=== PATIENT | female | born 1945 | race Caucasian/White ===

== ENCOUNTER 2018-09-10 18:45 | Inpatient (IN) | payer MEDICARE ==
[~2018-09-10] VITALS: Ht 170.2 cm; Wt 71.2 kg
--- NOTE | ~2018-09-10 | EKG ---
[place], [place] ELECTROCARDIOGRAM REPORT NAME: LASHONDA CHAMPION UNIT #: [id number] ROOM: 310 DOCTOR: NEREYDA DRAFT REPORT BIRTHDATE: [birth year] [facility] Test Date: 2018-09-11 Test Time: 17:53:45 Pat Name: LASHONDA CHAMPION Department: Room: 310 1 Gender: F Medical Record Specialist: : [id number] Requested By: LYLE PRADO Order Number: [id number] Reading MD: Mariela Andrade MD Measurements Intervals [place] Rate: 123 P: -40 HI: 132 QRS: -30 QRSD: 87 T: 68 QT: 325 QTc: 465 Interpretive Statements Sinus tachycardia Left axis deviation Anterior infarct, old No previous ECG available for comparison Electronically Signed On 09-18-2018 10:42:26 PST by Mariela Andrade MD CM:EKGRPT:ELECTROCARDIOGRAM REPORT [id number] LYLE ROBLES DRAFT REPORT LYLE PRADO DO
--- NOTE | ~2018-09-10 | PR ---
[place], [place] PROGRESS NOTE NAME: LASHONDA CHAMPION UNIT #: [id number] ROOM: 310 DOCTOR: CANELO MEDEIROS CNP BIRTHDATE: [birth year] DOS: 09/15/2018 CHIEF COMPLAINT: "This thing is bothering my waist." SUMMARY OF THE VISIT: The patient was interviewed in the dining area. The patient reports that she continues to feel anxious. She reports that she wants to get out of the chair and she promises that she will not try to leave. Staff was getting ready to transport the patient to her room to be showered at this time. MENTAL STATUS EXAMINATION: She is alert and oriented with some memory gaps. Her mood continues to be somewhat anxious and depressed, but appears to be improving. There is no hypomania or ana noted. No delusions or paranoia noted. No auditory or visual hallucinations noted. No lethargy or somnolence noted. PLAN: We will increase Namenda to 5 mg in the morning and 10 mg at bedtime. Continue all other medications as ordered at this time. The patient does appear to be tolerating medications without side effects. We will continue to engage the patient in individual and easley milieu activity. Continue with fall and safety precautions. Plan to return the patient to the least restrictive environment when she is psychiatrically stable. Canelo Medeiros CNP CM:PNTRANS [id number] CANELO MEDEIROS CNP 09/15/18 1044 interface
--- NOTE | ~2018-09-10 | DS ---
[place], [place] DISCHARGE SUMMARY [id number] UNIT #: [id number] ROOM: 310 DOCTOR: CANELO COLIN CNP BIRTHDATE: [birth year] DOS: 09/17/2018 CHIEF COMPLAINT: "I slept okay." HISTORY OF PRESENT ILLNESS: This is a 72-year-old white female who resides at the [facility]. She was admitted to the Behavioral Health Unit here at [facility] on 09/11/2018 due to the fact that she was appearing catatonic and she was having delayed responses and delayed ability to understand. She had not slept in 3 days. She had been admitted to the correction at [facility] 2 weeks prior and the staff reports that she has had a decline in her ADLs since that time. Due to the decompensation, it was felt that inpatient stabilization was warranted and she was admitted to the [facility] Behavioral Health Unit. SUMMARY OF THE HOSPITAL COURSE: The patient was admitted to the unit where her risperidone, Cymbalta and BuSpar were discontinued. She was started on Remeron 15 mg at bedtime and she was also started on Latuda 40 mg, which was increased to 60 mg at bedtime. Her Namenda was also started and it was increased from 5 mg once a day to now 10 mg twice a day, she was tapered over the course of her stay. Ativan 0.5 mg 3 times a day was also initiated. The patient tolerated medication changes well and has been extremely well. There is no acting out, no yelling, no complaints of any types of delusions or hallucinations. She has improved sufficiently to return back to the [facility] on 09/17/2018. PSYCHIATRIC CONDITION AT DISCHARGE: The patient has dramatically improved since admission. MEDICAL CONDITION AT DISCHARGE: The patient is alert and oriented to person, place and time with some memory gaps. Her mood has been calm. Her affect has been appropriate. There are no symptoms suggestive of ana or hypomania. There are no auditory or visual hallucinations noted. No delusions or paranoia noted. Short, intermediate and long-term memories are intact. PHYSICAL CONDITION AT DISCHARGE: The patient had no acute physical issues to be addressed at the time of discharge. FUNCTIONAL AND EMOTIONAL CONDITION AT DISCHARGE: The patient is assisted by staff with her ADLs. She does require some prompting and cueing. She is able to interact with individuals without difficulty. MEDICATIONS AT DISCHARGE: Exelon 13.3 mg patch daily, Remeron 15 mg at bedtime, Latuda 60 mg at bedtime, Ativan 0.5 mg 3 times day and Namenda 10 mg twice a day. The patient is not on multiple antipsychotic medications. FOLLOWUP CARE: Activity per the primary care physician at [facility]. Nutrition and diet per the primary care physician at [facility]. PSYCHIATRIC CONTINUING CARE PLAN: Psychiatric services will be provided by Dr. Baca. [place], [place] DISCHARGE SUMMARY NAME: LASHONDA CHAMPION UNIT #: [id number] ROOM: [facility] DOCTOR: CANELO COLIN CNP BIRTHDATE: [birth year] PAIN ASSESSMENT: The patient denied any pain issues at this time. FINAL DIAGNOSES: Brief psychotic disorder, unspecified dementia, schizophrenia. DISPOSITION: The patient is to return to the [facility] today. Her medication reconciliation has been filled out and signed. Her prognosis is good. Canelo Colin CNP CM:DISCHARG [id number] CANELO COLIN CNP 09/17/18 1231 interface
--- NOTE | ~2018-09-10 | PR ---
[place], [place] PROGRESS NOTE NAME: LASHONDA CHAMPION UNIT #: [id number] ROOM: 310 DOCTOR: CANELO MEDEIROS CNP BIRTHDATE: [birth year] DOS: 09/14/2018 CHIEF COMPLAINT: "I have to go to the bathroom." SUMMARY OF THE VISIT: The patient was interviewed in the dining area. She was complaining that she needed to get to the bathroom. She reports that she feels as if she slept well last night and that her appetite is good. The nurses report that the patient is selective in her responses and that she is slow to respond at times. The patient appears to be somewhat anxious at this time. MENTAL STATUS EXAMINATION: She is alert and oriented with time gaps. Her mood does seem to be somewhat anxious and depressed this morning. There are no signs of ana or hypomania. There are no audio or visual hallucinations noted. No delusions or paranoia noted. PLAN: We will continue medications as prescribed, which is Namenda 5 mg twice a day, Latuda 60 mg at bedtime, Ativan 0.5 mg 3 times a day and the Exelon 13.3 mg daily. We will plan to increase Namenda to 5 mg in the morning and 10 mg at bedtime tomorrow as long as the patient continues to tolerate medications without side effects. We will continue to engage the individual and easley milieu activity with plans to return to the least restrictive environment when psychiatrically stable. We will also continue fall and safety precautions. Canelo Medeiros CNP CM:PNTRANS [phone] CANELO MEDEIROS CNP 09/14/18 1013 interface
--- NOTE | ~2018-09-10 | PR ---
[place], [place] PROGRESS NOTE NAME: LASHONDA CHAMPION UNIT #: [id number] ROOM: 310 DOCTOR: CANELO MEDEIROS CNP BIRTHDATE: [birth year] DOS: 09/16/2018 CHIEF COMPLAINT: "I am ready to go. SUMMARY OF THE VISIT: The patient was interviewed as she was sitting in the dining area. She did voice that she is feeling better and that her mood has improved; however, she still has some anxiety. The nurses report that the patient only slept about 3 hours last night and that her sleep was interrupted, however, she has slept this morning. No agitation or behaviors noted. MENTAL STATUS EXAMINATION: She is alert and oriented with time gaps. Her mood seems to be improving and less anxious and depressed. There is no hypomania or ana noted. No delusions or paranoia noted. No auditory or visual hallucinations noted. No aggression or agitation noted. PLAN: I will increase the Namenda to 10 mg in the morning and 10 mg in the evening. We will continue her Ativan 0.5 mg 3 times a day and the Latuda 60 mg a day along with Exelon 13.3 mg daily. We will continue to have the patient engage in individual and easley milieu activity. We will continue fall and safety precautions. Plan to return the patient to the least restrictive environment as soon as tomorrow. Canelo Medeiros CNP CM:PNTRANS [phone] CANELO MEDEIROS CNP 09/16/18 2330 interface
--- NOTE | ~2018-09-10 | PR ---
[place], [place] PROGRESS NOTE NAME: LASHONDA CHAMPION UNIT #: [id number] ROOM: 310 DOCTOR: ANDRAE MI MD BIRTHDATE: [birth year] DOS: 09/13/2018 CHIEF COMPLAINT: "It feels like it is moving back and forth." SUMMARY OF THE VISIT: The patient was interviewed in the dining area. She had just talked to the hospitalist. She was complaining of left-sided chest pain again and reports that it feels like things on the inside her moving back and forth, which sounds like palpitations and anxiety. She did voice that she does feel anxious. I will go ahead and try some Ativan straight to see if this stops this symptom complex. It may also help some of her catatonia, which seems to be selective and may be related to anxiety. MENTAL STATUS: She is alert and oriented with time gaps. Mood does seem to be somewhat anxious and depressed, but improving. There is no hypomania or ana, psychosis is in the form of her catatonia. Memory has gaps. PLAN: I will increase the Namenda from 5 mg a day to 5 mg twice a day, increase the Latuda from 40 mg at bedtime to 60 mg at bedtime and add Ativan 0.5 mg 3 times a day straight. We will engage in individual and easley milieu activity, returning to the least restrictive environment when psychiatrically stable. ANDRAE MI MD CM:PNTRANS 09 120 ANDRAE MI MD 09/13/18 1205 interface
--- NOTE | ~2018-09-10 | WRIGHTHP ---
[place], [place] PATIENT HISTORY AND PHYSICAL EXAM [id number] UN[facility] #: [id number] ROOM: 310 DOCTOR: ANDRAE MI MD BIRTHDATE: [birth year] DOS: 09/11/2018 CHIEF COMPLAINT: "I need to get my meds straightened out." HISTORY OF PRESENT ILLNESS: This is a 72-year-old white female who resides at the [facility]. The patient was noted to have a sudden and significant mental status change where she appeared nearly catatonic and had significant processing difficulty. The patient was sent to [facility] to be evaluated medically and once organic factors were ruled out it was felt that she required psychiatric intervention to break the near catatonic symptoms. The patient had been not attending to her ADLs. She has not been sleeping well, eating well and it had been acting very bizarrely. She is admitted now to rule out organic factors, to stabilize on medication, to engage in individual and aesley milieu activity, returning to the least restrictive environment when psychiatrically stable. PAST MEDICAL HISTORY: Remarkable for coronary artery disease, cerebrovascular disease, degenerative joint disease, major depression, recurrent, hypertension, dementia, and possible schizophrenia. SOCIAL HISTORY: The patient does not drink, smoke or use illicit drugs. ALLERGIES: She has no known allergies. STRENGTHS: Good verbal skills, ambulatory. WEAKNESSES: Poor coping skills, long-term psychiatric history. MENTAL STATUS: The patient is alert and oriented with significant time gaps. There is a significant amount of thought blocking noted and she processes information extremely slowly. There is a great delay in her responses. She does not seem to be actively psychotic, but is rather guarded in her presentation. Memory does have gaps. DIAGNOSIS: Schizoaffective disorder, rule out major depression, recurrent with psychotic features. PLAN: Routine screening examinations revealed her to have a low vitamin B12 level of 297. I will treat with vitamin B12 injection 1000 mcg monthly, vitamin D level was also low at 18.5. We will treat with vitamin D 5000 international units daily. I have discontinued her Risperdal and BuSpar in lieu of Latuda 40 mg at bedtime. I will now discontinue Cymbalta in lieu of Remeron 15 mg at bedtime. Continue to engage in individual and easley milieu activity, returning to the least restrictive environment when psychiatrically stable. [place], [place] PATIENT HISTORY AND PHYSICAL EXAM NAME: LASHONDA CHAMPION UNIT #: [id number] ROOM: 310 DOCTOR: ANDRAE MI MD BIRTHDATE: [birth year] ANDRAE MI MD CM:HISPHYS:PATIENT HISTORY AND PHYSICAL EXAMINATION [id number] ANDRAE MI MD 09/11/18 1103 interface
--- NOTE | ~2018-09-10 | PR ---
[place], [place] PROGRESS NOTE NAME: LASHONDA CHAMPION UNIT #: [id number] ROOM: 310 DOCTOR: ANDRAE MI MD BIRTHDATE: [birth year] DOS: 09/12/2018 CHIEF COMPLAINT: "I don't like this thing in front of me." SUMMARY OF THE VISIT: The patient was interviewed as she was resting quietly in a Zehra chair. Her responses tended to be short and simple, at times off basis from the questions being asked. She was pleasant, however, there was no agitation or aggression. There is still a great deal of sparsity of thought and a great delay in her response time. Outwardly, she does seem to be tolerating the medicines well. MENTAL STATUS: She is alert and oriented to person, place, not time. Mood does seem to be fairly euthymic. No ana or hypomania or psychosis is noted. PLAN: I will increase her Exelon patch from 9.5-13.3 mg daily, trying to maximize potential benefits. I will augment now with Namenda 5 mg a day, engage in individual and easley milieu activities, returning to the least restrictive environment when psychiatrically stable. ANDRAE MI MD CM:PNTRANS 9 7 ANDRAE MI MD 09/12/18906 interface
[2018-09-10] MEDS ORDERED: CYMBALTA60 MG PO (22:34)
[2018-09-10] MEDS ORDERED: BUSPAR5 MG PO (22:34)
[2018-09-10] MEDS ORDERED: EXELON1 EAC1 T (22:35)
[2018-09-10] MEDS ORDERED: RISPERDAL2 M1 PO (22:36)
[2018-09-11] MEDS ORDERED: ASPIRIN ADULT L81 M1 PO (00:49)
[2018-09-11] MEDS ORDERED: LIPITOR40 MG PO (00:50)
[2018-09-11] MEDS ORDERED: Lopressor25 MG PO (00:50)
[2018-09-11] MEDS ORDERED: PRILOSEC20 M1 PO (00:51)
[2018-09-11] MEDS ORDERED: MIRALAX17 GM PO (00:52)
[2018-09-11] MEDS ORDERED: SENNA8.6 MG PO (00:53)
[2018-09-11 01:10] VITALS: BP 121/73
--- NOTE | 2018-09-11 01:10 | NUR ---
A 72, admitted PINKSLIPPED to 3N, under the services of ANDRAE Palacios MD with a diagnosis of BRIEF PSYCHOTIC D/O. Chief complaint is EPS, CATATONIC, HASNT SLEPT IN 3 DAYS. Patient arrived via stretcher from [facility] Initial assessment completed. Vital signs taken and recorded. ANDRAE PALACIOS MD notified of admission to the unit. Orders received. See assessment for past medical history, medications and allergies. Patient oriented to unit. [facility] visitation policy reviewed. Clothing/patient valuable form completed. JAMES VIERA
--- NOTE | 2018-09-11 01:35 | NUR ---
CUSTOMER CARE CONSULTANT CARLOS LI UPDATED ON PT ARRIVAL
--- NOTE | 2018-09-11 01:39 | NUR ---
CALLED HOSPITALIST CELL #[address] BUTLER. UPDATED ON NEW PT. NEW ORDER TO PLACE CONSULT UNDER DR DALE.
--- NOTE | 2018-09-11 02:00 | NUR ---
DR BUTLER ON UNIT TO ASSESS PT
[2018-09-11 02:29] VITALS: BP 121/73
--- NOTE | 2018-09-11 02:37 | NUR ---
PT SEDATED UPON ARRIVAL TO UNIT. PT PLACED IN BED. PT SAT ON EDGE OF BED. PT THEN PLACED IN ASHLEY CHAIR IN VIEW OF NURSES STATION. PT HAS EYES CLOSED AND REPEATEDLY SAYING "NURSE". WHEN STAFF ENTERED ROOM PT STATED HER LEFT BREAST WAS HURTING. NO AREAS OF CONCERN NOTED TO AREA. NO C/O CHEST PAIN. DENIES DIZZINESS, HEADACHE, N/V. PT REFUSED TO COMPLETE SKIN ASSESSMENT. REFSUED FLU AND PNEUMONIA VACCINES. UNABLE TO COMLETE ADMISSION ASSESSMENT DUE TO PREVIOUS SEDATION. UNABLE TO COMPLETE SUICIDE RISK ASSESSMENT AT THIS TIME.
--- NOTE | 2018-09-11 04:39 | NUR ---
24 HR chart check completed.
--- NOTE | 2018-09-11 05:39 | NUR ---
DURING HOC PT WAS NOTED TO HAVE AN EXELON PATCH ON DATED FROM 09/06. PATCH WAS REMOVED FROM LEFT UPPER CHEST. REDNESS NOTED TO THE AREA.
--- NOTE | 2018-09-11 05:52 | NUR ---
PT RESTING WITH EYES CLOSED AND CALLS OUT FOR NURSE IN [place] VOICE. WHEN STAFF WENT TO PT PT STATED SHE WANTED HER GOWN OFF. REDIRECTED MULTIPLE TIMES WITH NO SUCCESS. PT SLEPT FOR A FEW MINUTES INTERMITTENTLY.
[2018-09-11 06:54] LABS: BASO # 0.1 10*3/uL (0.0-0.1); BASO % 0.6 % (0.0-1.0); EOS # 0.1 10*3/uL (0.0-0.4); HEMATOCRIT 39.5 % (37.0-47.0); LYMPH # 1.8 10*3/uL (1.3-4.4); LYMPH % 15.9 % (27.0-41.0); MEAN CELL VOLUME 103.9 fl (81.0-99.0); MEAN CORPUSCULAR HGB 34.2 pg (27.0-31.0); MEAN CORPUSCULAR HGB CONC 32.9 g/dl (33.0-37.0); MEAN PLATELET VOLUME 10.2 fl (9.6-12.3); MONO # 0.6 10*3/uL (0.1-1.0); MONO % 5.4 % (3.0-9.0); NEUT # 8.9 10*3/uL (2.3-7.9); NEUT % 76.8 % (47.0-73.0); PLATELET COUNT AUTOMATED 307 10*3/uL (130-400); RED CELL DISTRI WIDTH 12.8 % (0-14.5); WHITE BLOOD COUNT 11.6 10*3/uL (4.8-10.8)
[2018-09-11 07:05] VITALS: BP 133/84
[2018-09-11 07:09] LABS: ALBUMIN 3.5 gm/dl (3.1-4.5); ALKALINE PHOSPHATASE 69 U/L (45-117); BUN 12 mg/dl (7-24); CHLORIDE 104 mmol/L (98-107); CHOLESTEROL 149 mg/dL (<200); CREATININE 0.74 mg/dL (0.55-1.02); POTASSIUM 3.4 mmol/L (3.5-5.1); SGOT/AST 28 IU/L (3-35); SGPT/ALT 20 U/L (12-78); SODIUM 137 mmol/L (136-145); TOTAL PROTEIN 6.9 gm/dL (6.4-8.2); TRIGLYCERIDES 107 mg/dl (<150); VLDL CHOLESTEROL 21 mg/dL (6-40)
[2018-09-11 07:17] LABS: HDL CHOLESTEROL 51 mg/dl (40-60); LDL CHOLESTEROL 77 mg/dL (9-159)
[2018-09-11 08:02] VITALS: BP 133/84
--- NOTE | 2018-09-11 08:15 | NUR ---
MADE AWARE OF ABNORMAL LABS INCLUDING WBC'S AND K+ LEVEL. NNO RECEIVED AT THIS TIME.
[2018-09-11 08:17] LABS: VITAMIN D, 25-HYDROXY 18.5 ng/mL (30-100)
[2018-09-11 09:22] LABS: BILIRUBIN NEGATIVE (NEGATIVE); BLOOD TRACE-INTACT (NEGATIVE); CLARITY CLOUDY (CLEAR); COLOR YELLOW (YELLOW); GLUCOSE NEGATIVE (NEGATIVE); KETONE TRACE (NEGATIVE); LEUKO ESTERASE TRACE (NEGATIVE); NITRITE POSITIVE (NEGATIVE); PH 6.5 (5.0-9.0); SPECIFIC GRAVITY 1.025 (1.005-1.030)
--- NOTE | 2018-09-11 09:30 | NUR ---
Treatment Plan meeting with Dr. Baca, RN, AT and Perinatal Coordinator. Plan for discharge next week when stable.
[2018-09-11 10:27] LABS: BACTERIA 4+; EPITHELIAL CELLS 20-30; WBC 21-30 wbc/hpf (0-5)
--- NOTE | 2018-09-11 10:46 | NUR ---
VERBAL ORDER RECIEVED FROM FOR COMPETENCY EVAL WITH .
--- NOTE | 2018-09-11 10:47 | NUR ---
Spoke with Latisha at [facility]. Pt. is [facility] Private Pay at facility. Pt. does not have a POA and daughter had recently tried for Guardianship over patient which was denied. Contact [place] felt that patient was her own person and treating psychiatrist felt that she was competent to make her own decisions.
--- NOTE | 2018-09-11 11:32 | NUR ---
AM GROUP THERAPY PT HAS JUST BEEN ADMITTED TO THE UNIT AND IS STILL A LITTLE GROGGY DUE TO PREVIOUS MEDICATIONS. PT WAS RECLINED IN A ASHLEY CHAIR AND KEPT ATTEMPTING TO GET UP ON HER OWN. PT IS A FALL RISK AND HAD TO BE CONSTANTLY REDIRECTED. PT GOALS HAVE NOT BEEN SET. WILL ATTEMPT THIS AFTERNOON.
--- NOTE | 2018-09-11 12:34 | NUR ---
CONSULT FOR COMPETENCY CANCELLED PER .
--- NOTE | 2018-09-11 13:19 | NUR ---
psychosocial hx completed. client did sign the voluntary admission per request of dr tatum.
--- NOTE | 2018-09-11 15:04 | NUR ---
ART [employer] MUSIC PT DID NOT ATTEND AFTERNOON GROUP. PT IS UNABLE AT THIS TIME TO PARTICIPATE DUE TO COGNITIVE IMPAIRMENT. PT WILL BE ENCOURAGED TO ATTEND GROUP REGULARLY.
--- NOTE | 2018-09-11 15:56 | NUR ---
(P) PT IS ALERT AND ORIENTED TO PERSON ONLY. UNABLE TO ORIENT TO PLACE, TIME, OR SITUATION. PT HAS BEEN NOTED TO ABRUPTLY FALL ASLEEP ALL THROUGHOUT THE SHIFT. PT EXPERIENCES THESE SLEEPING EPISODES DURING MID CONVERSATION WITH STAFF AND WALKING. ABLE TO ANWSER SIMPLE QUESTIONS APPROPRIATELY. APPETITE GOOD FOR MEALS, REQUIRES SET UP. MOD 1 ASSIST FOR TRANSFERS AND ADLS. MOD ASSIST OF 2 FOR AMBULATION AND SHOWER. PT RECEIVED A SHOWER THIS SHIFT. (I) ATTEMPTED TO AWAKEN PT DURING PERIODS OF ABRUPT SLEEP TO CORRECT SLEEP/WAKE CYCLE THROUGHOUT THE DAY. (R) PT EASILY AWAKENS TO NAME AND TACTILE STIMULATION. (P) ENCOURAGE GROUPS, PROVIDE DIVERSIONAL ACTIVITIES NEEDED.
--- NOTE | 2018-09-11 16:00 | NUR ---
Nursing screen and OT referral received. Thank you. Aliza Guidry OTR/L
[2018-09-11 17:41] VITALS: BP 150/106
--- NOTE | 2018-09-11 17:41 | NUR ---
UPDATED ON PT STATUS, REQUESTED EKG. STATES WILL ORDER EKG AND REVIEW LABS INCLUDING UA AND K+ AND ENTER NEW ORDERS.
--- NOTE | 2018-09-11 17:53 | NUR ---
ON UNIT TO ASSESS PT. UPDATED ON CURRNT VITALS FOLLOWS: 97.7, 150/106, 104, 20, 95% RA. PT CONTINUES TO HAVE PERIODS OF MODERATE PERSPIRATIONS PERIODICALLY T/O THE SHIFT. PIN MAKER ON UNIT AND COMPLETED EKG. REVIEWED EKG RESULTS. DR. PRADO STATES TO GIVE HS DOSE OF LOPRESSOR NOW AND TO CALL IF TRIPONINS ARE ABNORMAL. PT RESTING IN ASHLEY CHAIR AT THIS TIME. NO ACUTE DISTRESS NOTED. C/O LEFT BREAST PAIN CONTINUES. WILL CONTINUE TO MONITOR FOR CHANGES.
[2018-09-11 20:48] VITALS: BP 148/98
--- NOTE | 2018-09-11 20:50 | NUR ---
DR BUTLER UPDATED ON PT'S BLOOD PRESSURE OF 148/98. ALSO UPDATED DR ARELLANO DOSE OF LOPRESSOR WAS GIVEN [id number]. NO NEW ORDERS AT THIS TIME. STATED SHE WOULD GO OVER THE MEDICATION WITH THE DAYLIGHT TEAM AND POSSIBLY INCREASE DOASGE AMOUNT TOMORROW.
--- NOTE | 2018-09-11 21:21 | NUR ---
AT MED PASS PT'S MEDICATIONS WERE CRUSHED AND MIXED IN PUDDING. AFTER PT SWALLOWED MEDICATIONS SHE WAS OFFERED A DRINK OF WATER AND PT STARTED COUGHING. PT THEN TK A SECOND DRINK AND NO COUGHING NOTED. SPEECH EVAL ORDERED.
--- NOTE | 2018-09-12 02:04 | NUR ---
24 HR chart check completed.
--- NOTE | 2018-09-12 02:08 | NUR ---
P- CONFUSION I- ATTEMPTED TO ORIENT PT TO PLACE, TIME, AND SITUATION. ENCOURAGE MEDICATION COMPLAINCE. ENCOURAGED PT TO TALK TO A FEMALE PEER, 1:1 PROVIDED R- PT IS ALERT TO PERSON. ABLE TO ANSWER SIMPLE QUESTIONS. WHEN GIVEN A QUESTION CAN YOU DESCRIBE HOW YOU DONT FEEL WELL PT BECOMES CONFUSED AND STATES SHE WANTS SOMETHING OFF HER HIPS. MEDICATION COMPLAINCE WITHOUT DIFFICULTY. UNABLE TO GET PT TO TALK TO A PEER. P- CONTINUE TO ENCOURAGE MEDICATION COMPLIANCE, CONTINUE TO REORIENT PT WHEN NEEDED, ENCOURAGE PT TO PARTICIPATE IN GROUPS. CONTINUE TO ENCOURAGE PT TO INTERACT WITH PEERS. PROVIDE 1:1 WHEN NEEDED.
--- NOTE | 2018-09-12 05:49 | NUR ---
PT SLEPT APPROXIMATELY 5 HOURS THIS SHIFT.
[2018-09-12 07:41] VITALS: BP 114/71
--- NOTE | 2018-09-12 11:28 | NUR ---
AM GROUP/EXERCISE/GAME PT ATTENDED BUT UNABLE TO PARTICIPATE DUE TO LEVELS OF COGNITION. PT SLEPT ON AND OFF IN ASHLEY CHAIR. PT STATES "I JUST DONT FEEL RIGHT" WITH A TEAR COMING OUT OF HER EYE. THIS STAFF NOTIFIED NURSE WHO CAME TO CHECK ON PT. PT WILL CONTINUE TO ATTEND GROUP ON A REGULAR BASIS AND BE MONITORED.
--- NOTE | 2018-09-12 18:08 | NUR ---
P: PT CONFUSED, SELECTIVELY REFUSING TO COMMUNICATE WITH STAFF. I: PT REORIENTED TO PLACE, TIME, AND SITUATION. PT ENCOURAGED TO VERBALIZE FEELINGS. PROVIDED WITH 1:1 AND EMOTIONAL SUPPORT FOR COMFORT. R: PT VERBALIZED WANTS AND NEEDS TO STAFF, [facility] APPARENT AND PT COULD NOT REITERATE WHEREABOUTS. P: CONTINUE TO ENCOURAGE PT TO VERBALIZE WANTS AND NEEDS. CONTINUE TO PROVIDE EMOTIONAL SUPPORT AND REORIENTATION NEEDED. ENCOURAGE PARTICIPATION IN GROUP ACTIVITIES FOR SOCIALIZATION AND SUPPORT.
[2018-09-12 20:00] VITALS: BP 119/80
--- NOTE | 2018-09-12 20:52 | NUR ---
P: CONFUSION I: ATTEMPTED TO REORIENT PT. ENCOURAGE MEDICATION COMPLIANCE. ENCOURAGED PT TO INTERACT WITH PEERS. 1:1 PROVIDED. ALLOWED TIME FOR PT TO VENT FEELINGS. R: PT IS ALERT TO PERSON. ABLE TO ANSWER SIMPLE QUESTIONS. SELECTIVE WITH ANSWERS. SLOW TO PROCESS AND RESPOND. PT INTERACTED WITH STAFF DURING HOC HOWEVER DID NOT INTERACT WITH PEERS. MEDICATION COMPLIANCE. P: CONTINUE TO ENCOURAGE MEDICATION COMPLAINCE, REORIENT PT, PROVIDE 1:1 AND ALLOW TIME FOR PT TO VENT FEELINGS. CONTINUE TO ENCOURAGE PT TO INTERACT WITH STAFF AND PEERS. MEDICATION COMPLIANT WITHOUT DIFFICULTY. Q15 MINUTE SAFETY CHECKS MAINTAINED.
--- NOTE | 2018-09-12 21:00 | NUR ---
24 HR chart check completed.
--- NOTE | 2018-09-13 05:38 | NUR ---
PT SLEPT APPROXIMATELY 8 HOURS THIS SHIFT.
[2018-09-13 07:37] VITALS: BP 108/65
--- NOTE | 2018-09-13 08:41 | NUR ---
DR. LACEY AND TEAM ON UNIT. NOTIFIED OF FINAL URINE CULTURE AND SENSITIVITY RESULTS. STATES "I WILL LOOK AT IT". ALSO NOTIFIED OF PT CONTINUED C/O DISCOMFORT TO LEFT BREAST PAIN.
--- NOTE | 2018-09-13 08:52 | NUR ---
DR. MI ON UNIT TO ASSESS PT. STATES THAT PT REPORTS LEFT SIDE DISCOMFORT IS D/T ANXIETY. PER DR. MI GIVE ATIVAN 1MG PO NOW. ATIVAN ADMINISTERED PER ORDER. PT RECLINED IN ASHLEY CHAIR RESTING WITH EYES CLOSED AT THIS TIME.
--- NOTE | 2018-09-13 09:00 | NUR ---
DR. WASHINGTON ON UNIT TO DO PHYSICAL EXAM ON PT. THIS NURSE WITNESSED DR. WASHINGTON PERFORMED VISUAL EXAMINATION OF PT'S LEFT BREAST AREA FOR S/S OF RASH TO AREA. DR. WASHINGTON ALSO PALPATED FOR ANY NODULES OR CYSTS. STATES NO SIGNIFICANT FINDINGS UPON EXAMINATION. PT TOLERATED WELL.
--- NOTE | 2018-09-13 15:04 | NUR ---
PM GROUP/GAMES PT ATTENDED BUT UNABLE TO PARTICIPATE DUE TO LEVELS OF COGNITION. PT KEPT CALLING THIS STAFF BY ANOTHER STAFF NAME AND STATING "I'M IN PAIN" PT POINTS TO CHEST AREA. THIS STAFF INFORMS NURSE WHO IS AWARE OF PT'S PAIN AND HAS ATTEMPTED TO HELP PT IN MANY WAYS. THIS STAFF EVENTUALLY PUSHES PT INTO ASKEW TO KEEP FROM DISRUPTING GROUP. PT WILL CONTINUE TO ATTEND GROUP SESSIONS AND BE MONITORED.
--- NOTE | 2018-09-13 16:30 | NUR ---
PT CONTINUES TO C/O LEFT BREAST AREA PAIN. STATES "I THINK THAT ANXIETY MEDICINE YOU GAVE ME HELPED, BUT I NEED TYLENOL". PRN TYLENOL GIVEN AT PT REQUEST
--- NOTE | 2018-09-13 16:48 | NUR ---
P: PT SELECTIVELY COMMUNICATES WITH NURSE. PT STATES THAT SHE IS EXPERIENCING PAIN TO LEFT BREAST AREA. PT AFFECT IS FLAT. PT IS REPETITIVE AND DEMANDING. PT PRESENTS FALL RISK. I: PT ENCOURAGED TO VERBALIZE WANTS AND NEEDS TO STAFF. HOSPITALIST AND PSYCHIATRIST NOTIFIED OF PT'S DISCOMFORT. PT EDUCATED ON USING CALL LIGHT AND ON FALLING STAR PROGRAM. FALLING STAR PROGRAM MAINTAINED FOR SAFETY. R: PT YELLED OUT X SEVERAL. INTERMITTENTLY STATING SHE IS IN PAIN AND FALLING QUICKLY TO SLEEP, SNORING. PT VERBALIZED WANTS AND NEEDS TO STAFF. PT REMAINS FREE FROM FALLS. P: MONITOR PT FOR EFFECTIVENESS OF NEW ROUTINE MEDICATIONS IN DECREASING ANXIETY. MONITOR FOR PAIN, PROVIDE ALTERNATIVE, NONPHARMACOLOGIC RELAXATION TECHNIQUES NEEDED. CONTINUE TO ENCOURAGE MEDICATION COMPLIANCE. ENCOURAGE PARTICIPATION IN GROUP ACTIVITY/THERAPY FOR SOCIALIZATION AND SUPPORT.
--- NOTE | 2018-09-13 16:54 | NUR ---
Shift chart check completed.
[2018-09-13 19:43] VITALS: BP 140/70
--- NOTE | 2018-09-13 22:21 | NUR ---
P: REPETITIVE I: PROVIDE 1:1 TO ALLOW TIME FOR PT TO VENT FEELINGS. ENCOURAGE MEDICATION COMPLIANCE. PROVIDE LOW STIMULUS ENVIRONMENT. PROVIDE MEDICATION EDUCATION. ASSIST PT WITH IDENTIFYING TECHNIQUES TO REDUCE ANXIETY AND INCREASE PATIENCE. R: PT CONTINUES TO BE REPETITIVE WITH YELLING FOR NURSES. PT STATES SHE IS ANXIOUS AND MEDICATION EDUCATION PROVIDED REGARDING ANXIETY MEDICATIONS. ASSISTING PT IN IDENTIFYING CALMING TECHNIQUES AND INCREASE PATIENCE WAS INEFFECTIVE. PT CONTINUES TO SAY I AM NOT PATIENT I CAN NOT CALM DOWN OR BE PATIENT. P: CONITNUE TO ASSIST PT IN IDENTIFYING CALMING TECHNIQUES. CONTINUE TO ENCOURAGE MEDICATION COMPLIANCE AND PROVIDE A LOW STIMULUS ENVIRONMENT WHEN NEEDED. ENCOURAGE MEDICATION COMPLAINCE.
--- NOTE | 2018-09-13 22:30 | NUR ---
24 HR chart check completed.
--- NOTE | 2018-09-14 05:57 | NUR ---
PHYSICAL THERAPY Nursing screen recieved. PT orders also recieved. Thank you. Quin Garvin,PT
--- NOTE | 2018-09-14 06:01 | NUR ---
PT SLEPT APPROXIMATELY 8 HOURS THIS SHIFT WITH 1 AWAKENING.
[2018-09-14 07:23] VITALS: BP 110/64
--- NOTE | 2018-09-14 08:00 | NUR ---
Patient is unarousable this am. NSG aware and patient has not been medicated recently to cause increased fatigue. Will check back for OT evaluation when patient is appropriate. Dianna Perkins OTR/L
--- NOTE | 2018-09-14 08:00 | NUR ---
Discharge Plan remains for Discharge at the end of the week. Pt. to return to [facility].
--- NOTE | 2018-09-14 08:13 | NUR ---
PHYSICAL THERAPY Staff has been unable to arouse patient this am. will check patient status at a later date. Thank you for this referral. Quin Garvin,PT
--- NOTE | 2018-09-14 09:30 | NUR ---
SPEECH PATHOLOGY Clinical swallowing eval. completed as per orders. This was ordered due to coughing with thin liquid and pudding. Medical hx is significant for CVA, paranoid schizophrenia, brief psychotic disorder, HTN, DJD, dementia, depression/anxiety. Patient was seen this am, alert but easily fatigued and weak. Patient was able to follow simple one step commands and she denied any chewing or swallowing difficulty. She receives a regular consistency diet and thin liquid. Oral peripheral exam revealed movements slow and reduced in strength and ROM. She was assessed with puree, solid food and thin liquid. Patient displayed no overt difficulty with puree. She was able to bite and chew solid consistency with chewing slow but functional. No significant oral residue remained post swallow. No cough or wet vocal quality was observed. She consumed thin liquid by straw with cough observed following large, consecutive sips. No coughing was displayed with small sips of liquid. Recommend a mechanical soft diet and thin liquids. Recommend safe swallow precautions such as feeding only when awake, alert, consuming small bites/sips and alternating liquid and solid. Follow up therapy is recommended to ensure safe tolerance of diet through education of adherence to safe swallow precautions. Results and recommmendations were shared with patient's nurse who verbalized understanding. Refer to report in [employer] for further information. Thank you for this referral. JOE GRANADOS MSCCC-GROUP CIO
--- NOTE | 2018-09-14 09:43 | NUR ---
[facility]
--- NOTE | 2018-09-14 15:28 | NUR ---
Shift chart check completed.
--- NOTE | 2018-09-14 15:57 | NUR ---
P: PT DRIFTING IN AND OUT OF SLEEP THROUGHOUT THE DAY, RANDOM COMPLAINTS OF PAIN TO LEFT BREAST, NON INTERACTIVE WITH STAFF I: STAFF ENCOURAGED PT THROUGH PROVIDING HOC, AWAKENING HER FOR INTERACTIONS SUCH MUSIC THERAPY, TALKING 1:1 WITH PATIENT ABOUT HER BREAST PAIN, PT HAS NO AREAS OF CONCERN, MEDICAL MANAGEMENT AND DR MI ARE AWARE OF PT CONCERNS. PT GIVEN TYLENOL AT THIS TIME TO ASSIST IN PAIN MANAGEMENT. ATTEMPTED TO ENGAGE PT WITH INTERACTIONS SUCH MUSIC, COLORING, 1:1, PT STATED SHE LIKED PUZZLES AND PICTURES BUT WHEN PRESENTED WITH ITEMS SHE DISMISSED THEM AND IGNORED THIS NURSE. R: PT CONTINUES TO NEED INCREASED MONITORING FOR MEDICAITON EFFECTIVENESS. PT IS ALERT TO PERSON PLACE AND TIME BUT DOES NOT WANT TO CONVERSATE WITH STAFF ABOUT WHAT UPSETS HER BESIDES HER BREAST PAIN WHICH SHE STATES HAS BEEN GOING ON FOR MONTHS. PT IN LOUNGE AND MUSIC PROVIDED. TYLENOL EFFECTIVE AT THIS TIME. P: CONTINUE TO MONITOR FOR EFFECTIVENESS AND ATTEMPT TO HELP PT TO COMMUNICATE THOUGHTS AND INCREASE HER INTERACTION WITH STAFF AND ACTIVITIES THROUGHOUT THE DAY.
--- NOTE | 2018-09-14 17:57 | NUR ---
PT IS ALERT TO PERSON TIME AND AWARE THAT SHE IS IN A HOSPITAL, PT DOES HOLD HER HANDS IN FISTED MANNER FREQUENTLY BUT WILL RELEASE THEM WITH EASE, NO CONTRACTURES, NO TREMORS NOTED, AFFECT IS FLAT WITH INTERACTION. PT APPETITE FAIR, PT DID COMPLAIN OF BREAST PAIN AGAIN AT THIS TIME, REMINDED SHE HAD TYLENOL RECENTLY, OFFERED TO REPOSITION, PT STATED MAYBE SHE NEEDED ANXIETY MEDICAITON SHE DRIFTED BACK INTO A HALF ASLEEP GAZE. WILL INFORM FOLLOWING SHIFT OF PT DAY SLEEPING PATTERN
[2018-09-14 19:42] VITALS: BP 128/76
--- NOTE | 2018-09-14 21:47 | NUR ---
24 HR chart check completed.
--- NOTE | 2018-09-14 23:20 | NUR ---
P: REPETITIVE YELLING FOR NURSE I: 1:1 TO ALLOW TIME FOR PT TO VENT FEELINGS. REDIRECT PT NEEDED. ATTEMPT TO GET PT TO WATCH TV TO DECREASE ANXIETY, ENCOURAGE MEDICATION COMPLIANCE. R: PT SPOKE TO THIS NURSE ABOUT HOW SHE WAS FEELING "PAIN IN LEFT BREAST". PT STATED SHE DID NOT WANTY TO WATCH TV. REDIRECTION IS EFFECTIVE FOR SHORT PERIODS OF TIME. P: CONTINUE TO REDIRECT PT WHEN NEEDED. PROVIDE 1:1 TO ALLOW TIME FOR PT TO VENT FEELINGS. OFFER NONPHARMACOLOGICAL INTERVENTIONS.
--- NOTE | 2018-09-15 06:53 | NUR ---
PT SLEPT APPROXIMATELY 6 INTERRUPTED HOURS THIS SHIFT. Q15 MINUTE SAFETY CHECKS MAINTAINED.
[2018-09-15 07:49] VITALS: BP 151/58
--- NOTE | 2018-09-15 10:50 | NUR ---
DR LACEY ON UNIT TO SEE PATIENT BUT PATIENT IN THE SHOWER AT THIS TIME. DR LACEY TO SEE PATIENT TOMORROW
--- NOTE | 2018-09-15 12:00 | NUR ---
Shift chart check completed.
--- NOTE | 2018-09-15 15:09 | NUR ---
P: ANXIOUS AT TIMES AND REAPETIVELY ASKS FOR A NURSE. I: PROVIDED 1:1 TO LET TALK, VENT FEELINGS, AND HAVE SOMEONE NEARBY. ACTIVE LISTENING. DIVERSIONAL ACTIVITIES ON THE UNIT. ASSISTED IN WALKING, HYGIENE, AND NUTRITION. R: 1:1 AND DIVERSIONAL TECHNIQUES WERE EFFECTIVE FOR A LITTLE BIT, THEN SHE WOULD START CALLING FOR A NURSE EVEN IF THEY WERE RIGHT IN FRONT OF HER. PATIENT SHOWERED, BATHED, WALKED A FEW STEPS, AND ATE VERY GOOD FOR EACH MEAL. P: OFFER 1:1 AND DIVERSIONAL ACTIVITIES WHEN NECESSARY. FALLING STAR PROGRAM MAINTAINED. ASSIST WITH ADL'S. ENCOURAGE COMMUNICATION WITH OTHER PEERS AND UNIT ACTIVITIES DONE A GROUOP.
[2018-09-15 20:23] VITALS: BP 151/96
--- NOTE | 2018-09-16 06:38 | NUR ---
PT SLEPT INTERUPPTED 3 HOURS OF SLEEP THIS SHIFT. PT PROVIDED WITH 1:1 AND LOW STIMULATION. PT REPOSITIONED FOR COMFORT AND ASSISTED TO BATHROOM. ALL INTERVENTIONS INEFFECTIVE. PT REMAINED RESTLESS.
[2018-09-16 07:19] VITALS: BP 114/91
--- NOTE | 2018-09-16 09:06 | NUR ---
speech daily note Patient seen for individual session. Patient seated in a Gerichair and a pillow was used to position her as close to 90 degrees as possible.Patient had to be awakened and was assisted with cup and straw for liquid. Patient did not eat much for breakfast as staff reported giovanni noted at this session. Patient was not able to use a straw as no liquid sucked as she attempted. Small sips via cup with hand over hand thin liquid revealed multiple swallows per small sip indicitive of reduced bolus formation and control but swallow was timely and a cough and choke 1/5 or 20% with productive cough and throat clear eventual clear vocal quality. Discussed with nursing to closely monitor and report s/s aspiration and abnormal lung sound or temperature changes all clinical s/s aspiration. No change in diet at this time but recommended patient be alert,upright 90 degrees and small sips via cup with hand over hand to maximize cortical brain input to improve swallow readiness. Speech to continue to follow and assess patient.Plan to assess with chin forward positions as patient was resistive this date to maximize anatome for airway protection with liquids and reduce overt s/s aspiration to 0%.Patient is at high risk for limited hydration due to lethargy and mental status so water to be encouraged with swallowing strategies mentioned above. Leigh Ngo MA CCC-STRAPPER AND BUFFER Leigh Ngo MA CCC-STRAPPER AND BUFFER
[2018-09-16 09:30] VITALS: BP 130/98
--- NOTE | 2018-09-16 09:30 | NUR ---
ON UNIT TO ASSESS PT.
--- NOTE | 2018-09-16 11:01 | NUR ---
PATIENT COMPLAINED OF LEFT SIDE PAIN, PATIENT REPOSITIONED IN ASHLEY CHAIR, STILL COMPLAINING OF LEFT BREAST PAIN, 10/10 PAIN RATE. FLAT AFFECT. PRN TYLENOL 650MG PO GIVEN AT THIS TIME.
--- NOTE | 2018-09-16 11:13 | NUR ---
PATIENT IS ALERT TO PERSON, KNOWS SHE IS IN A HOSPITAL AND TIME; ABLE TO VOICE NEEDS. MOOD IS STABLE WITH FLAT AFFECT. DENEIS ANY HALLUCINATIONS, DELUSIONS, HI/SI. 1 PERSON ASSIST WITH ACTIVITIES OF DAILY LIVING, CONTINENT OF BOWEL AND BLADDER. PATIENT PREOCCUPIED WITH LEFT BREAST PAIN AND HAVING ANXIOUS. PATIENT EDUCATION ON MEDICATIONS AND MAKE AWARE OF ALREADY TAKING ATIVAN FOR HER ANXIETY. PATIENT SLEPT THROUGH BREAKFAST. SEEN BY SPEECH THERAPY TODAY. MEDICATED WITH TYLENOL FOR LEFT BREAST PAIN. UP IN ASHLEY CHAIR RECLINED FOR COMFORT. MEDICATION COMPLAINT. Q 15 MINUTE SAFETY CHECKS MAINTAINED. NO EPS OBSERVED. CONTINUE TO MONITOR MOOD, PROVIDE ONE ON ONE AND REDIRECTION NEEDED.
--- NOTE | 2018-09-16 11:39 | NUR ---
AM GROUP THERAPY PT WAS RECLINED IN A ASHLEY CHAIR WITH EYES CLOSED FOR MOST OF GROUP. PT CONSTANTLY CALLED OUT FOR THIS STUDENT ACCOUNTS COORDINATOR AND COMPLAINED OF PAIN ON LEFT SIDE/LEFT BREAST. PT WOULD ONLY BE REDIRECTED FOR A SHORT TIME. PT NURSE WAS NOTIFIED. PT IS UNABLE TO PARTICIPATE IN GROUP AT THIS TIME DUE TO COGNITIVE IMPAIRMENT AND FIXATION ON PAIN AND MEDICATION.
--- NOTE | 2018-09-16 12:00 | NUR ---
NO FURTHER COMPLAINTS OF PAIN, PRN TYLENOL EFFECTIVE.
--- NOTE | 2018-09-16 15:05 | NUR ---
PM GROUP/MUSIC THERAPY PT WAS PRESENT FOR AFTERNOON GROUP BUT IS UNABLE AT THIS TIME TO PARTICIPATE DUE TO COGNITIVE IMPAIRMENT AND CONFUSION. PT REPEATEDLY BEGGED TO BE TAKEN TO HER ROOM. PT COULD ONLY BE REDIRECTED FOR A MINUTE AND KEPT CALLING OUT, "BRYCE, TAKE ME TO MY ROOM." PT WAS TOLD OVER AND OVER THAT SHE COULD NOT GO TO HER ROOM AND WAS FINALLY REMOVED TO A QUIET ROOM ACROSS FROM THE NURSES STATION FOR OBSERVATION AND SAFETY. PT WILL BE DISCHARGED FROM THE UNIT TOMORROW.
[2018-09-16 19:13] VITALS: BP 126/64
[2018-09-17 07:49] VITALS: BP 129/81
--- NOTE | 2018-09-17 08:45 | NUR ---
SPEECH THERAPY ON FLOOR TO ASSESS PATIENT.
--- NOTE | 2018-09-17 08:49 | NUR ---
SPEECH PATHOLOGY Patient was seen this am. She was seated in [facility] and sleeping on arrival. Clinician woker her and was able to engage her in brief conversation. She was oriented to person and place but not time. Clinician sat her chair up at 90 degrees and gave her applesauce by spoon (4 small spoonfuls). She tolerated well. She was very lethargic and fell back asleep quickly. Too lethargic to trial thin water with strategies. After rousing her again, clinician discussed chin tuck maneuver to reduce aspiration of thin liquid. She verbalized agreement, however, quickly fell back asleep. Will attempt at later time when patient is more alert. Staff reported that she slept through breakfast. Also reported that she will be discharged today. Discussed safety with staff and need for patient to be alert when eating, especially while drinking thin liquids. Attempt compensatory strategies and education at later time if patient is still at facility. Kuldeep Castano MA CF-BUTTON CLAMPER
--- NOTE | 2018-09-17 09:09 | NUR ---
DR LOVE NOTIFIED OF PATIENT BEING DISCHARGED TODAY, DR DAEL TO BE UPDATED ON PATIENT'S DISCHARGE.
--- NOTE | 2018-09-17 09:54 | NUR ---
DR. DLAE ON FLOOR TO ASSESS PATIENT.
--- NOTE | 2018-09-17 10:40 | NUR ---
Treatment Plan meeting with Cindy MANZANARES, RN, AT and Strategic Marketing Leader. Plan for discharge today. Pt. to return to [facility]. Transportation has been set up with [facility] to transport with black pickler time 2:00 p.m.
[2018-09-17] MEDS ORDERED: MEMANTINE HCL10 MG PO (10:43)
[2018-09-17] MEDS ORDERED: LATU60TA PO (10:43)
[2018-09-17] MEDS ORDERED: EXELON13.3 MG/21 T (10:43)
[2018-09-17] MEDS ORDERED: MIRTAZAPINE15 M2 PO (10:43)
[2018-09-17] MEDS ORDERED: LORAZEPAM0.5 MG PO (10:43)
--- NOTE | 2018-09-17 11:32 | NUR ---
AM GROUP THERAPY PT WAS PRESENT FOR MORNING GROUP RECLINING IN A ASHLEY CHAIR. PT WAS ANXIOUS ABOUT LEAVING AND KEPT TRYING TO GET UP. PT WAS REASSURED AND WOULD CALM DOWN. PT IS SET TO BE DISCHARGED TODAY AT 2PM
[2018-09-17] MEDS ORDERED: VITAMIN D5000 UNI1 PO (11:44)
[2018-09-17] MEDS ORDERED: B12,B-12,B 12500 MC1 PO (11:44)
--- NOTE | 2018-09-17 12:49 | NUR ---
LAWN AND GARDEN TECHNICIAN, JOHN, FROM [facility] CALLED. NURSE TO NURSE REPORT GIVEN AT THIS TIME. INFORMED THAT DISCHARGE PLAN IS AT 1400.
--- NOTE | 2018-09-17 13:00 | NUR ---
Shift chart check completed.
--- NOTE | 2018-09-17 13:40 | NUR ---
P: INTERMITTENT ANXIOUS I: PROVIDE 1:1 TO ALLOW TO EXPRESS EMOTIONS AND TO TALK, ASSIST WITH ADL'S, NUTRITION AND HYDRATION PROVIDED, MEDICATIONS GIVEN AND EDUCATION PROVIDED. SAT WITH PATIENT. R: PATIENT IS MEDICATION COMPLIANT. PATIENT IS NOT ANXIOUS AFTER MEDICATIONS ARE GIVEN. PATIENT CALMS DOWN WHEN YOU SIT WITH HER AND TALK WITH HER. P: CONTINUE TO PROVIDE MEDICATION AND EDUCATION ON TIME. 1:1 WITH PATIENT TO ALLOW TO EXPRESS FEELINGS, TALK, AND JUST SIT WITH PATIENT WHEN NECESSARY. ASSIST WITH ADL'S. MAINTAIN FALLING STAR PROGRAM.
--- NOTE | 2018-09-17 14:03 | NUR ---
EMS ON FLOOR TO TRANSACTION COORDINATOR PATIENT. PATIENTS DISCHARGE INSTRUCTIONS SENT FOR HER AND [facility]. PATIENTS BELONGINGS SENT WITH PATIENT. REPORT GIVEN TO EMS. PATIENT IN A GOOD MOOD TO LEAVE. PATIENT LEFT UNIT VIA STRETCHER.
== END 2018-09-17 14:03 | disposition other institution (70) | DRG 885 ==
LOC: 3N 18:45
PROVIDERS: ADMIT Psychiatry & Neurology Psychiatry
DX: F25.9 Schizoaffective disorder, unspecified (principal); F03.90 Unspecified dementia, unspecified severity, without behavioral disturbance, psychotic disturbance, mood disturbance, and anxiety; F41.9 Anxiety disorder, unspecified; I25.10 Atherosclerotic heart disease of native coronary artery without angina pectoris; M19.90 Unspecified osteoarthritis, unspecified site; I10 Essential (primary) hypertension; Z98.51 Tubal ligation status; Z86.73 Personal history of transient ischemic attack (TIA), and cerebral infarction without residual deficits